=== PATIENT | male | born 1990 | race Asian ===

== ENCOUNTER 2022-08-15 11:24 | Emergency (ER) | payer MEDICAID ==
[~2022-08-15] VITALS: Ht 170.2 cm; Wt 70.3 kg
[2022-08-15 11:31] VITALS: BP 126/73
[2022-08-15] MEDS ORDERED: ACETAMINOPHEN EXTRA STRENGTH 500 MG TAB PO ONE (11:55)
[2022-08-15] MEDS ORDERED: IBUP-2213 PO (12:53)
[2022-08-15 13:54] VITALS: BP 101/73
== END 2022-08-15 13:54 | disposition home or self-care (01) ==
LOC: MED 11:24
DX: S90.112A Contusion of left great toe without damage to nail, initial encounter (principal); X58.XXXA Exposure to other specified factors, initial encounter; Y93.89 Activity, other specified; Y92.89 Other specified places as the place of occurrence of the external cause; Y99.8 Other external cause status
CPT/HCPCS: 29515; 73660; 99283; Q0092